=== PATIENT | male | born 1950 | race Caucasian/White ===

== ENCOUNTER 2017-06-24 06:17 | Day surgery (SDC) | payer OTHER ==
[2017-06-24 07:15] LABS: HEMATOCRIT 33.8 % (39.0-51.0); MEAN CELL VOLUME 93.5 FL (80.0-100.0); MEAN CORPUSCULAR HEMOGLOBIN 31.6 PG (27.0-34.0); MEAN CORPUSCULAR HGB CONC 33.8 % (32.0-36.0); PLATELET COUNT 147 TH/MM3 (150-450); RED BLOOD COUNT 3.61 MIL/MM3 (4.50-5.90); RED CELL DISTRIBUTION WIDTH 17.1 % (11.6-17.2); REVIEW FLAG FINAL; WHITE BLOOD COUNT 15.4 TH/MM3 (4.0-11.0)
[2017-06-24 08:08] LABS: APTT (PATIENT) 30.8 SEC (24.3-30.1); INTERNATIONAL NORMALIZED RATIO 1.1 RATIO
[2017-06-24 08:56] VITALS: BP 84/63; PULSE 68; RESP 16; TEMP 96.9; O2SAT 99
[2017-06-24] MEDS ORDERED: LIDOCAINE HCL 1% 20 ML VIAL ONE (09:50)
[2017-06-24 10:10] VITALS: BP 77/60; PULSE 72; RESP 16; TEMP 97.3; O2SAT 94
--- NOTE | 2017-06-24 10:13 | RADRPT ---
EXAM DATE/TIME: 06/24/2017 08:25 [place] COMPARISON: No previous studies available for comparison. INDICATIONS : Ascites. MEDICAL HISTORY : Colon cancer. Liver cancer. Lung cancer. SURGICAL HISTORY : Hemicolectomy. ENCOUNTER: Initial ACUITY: 1 day PAIN SCORE: Non-responsive LOCATION: Left lower quadrant FLUID: Total volume of 6600 cc of clear, yellow fluid was removed. Fluid was discarded. Paracentesis was therapeutic only. Post procedure scanning reveals no hematoma or other complication. TECHNIQUE: 1. Ultrasound guidance for abdominal paracentesis. 2. Paracentesis. The risks, benefits, and alternatives to ultrasound guided paracentesis were explained to the patient in detail including the risk of bleeding and infection. Written and verbal informed consent was obt ained. With the patient on the ultrasound table, ultrasound imaging was used to select the most appropriate approach for paracentesis. Overlying skin was prepped and draped in the usual sterile fashion and wi th a local anesthetic, a dermatotomy was made with an 11 blade scalpel. A 6 Pas[employer] [id number]-fafdvumn ca theter was introduced into the peritoneal cavity and fluid was collected. The patient tolerated the procedure well and left the ultrasound suite in stable condition. CONCLUSION: Uncomplicated ultrasound guided paracentesis. Leo Liz Jr., MD on June 24, 2017 at 10:11 Board Certified Radiologist. This report was verified electronically.
[2017-06-24 10:15] VITALS: BP 82/62; PULSE 74; RESP 18; O2SAT 100
[2017-06-24 10:25] VITALS: BP 80/58; PULSE 75; RESP 20; O2SAT 100
[2017-06-24] MEDS ORDERED: ALBUMIN 25% INJ 100 ML IV ONE ×2 (10:26→10:27)
[2017-06-24 10:40] VITALS: BP 85/63; PULSE 72; RESP 20; O2SAT 100
[2017-06-24] MEDS ORDERED: ALBUMIN HUMAN 25% 12.5GM-W/25GM FOR 37.5GM IV ONE (10:45)
[2017-06-24] MEDS ORDERED: ALBUMIN HUMAN 25% 25GM-W/12.5GM FOR 37.5GM IV ONE (10:45)
== END 2017-06-24 11:00 | disposition home or self-care (01) ==
LOC: HRAD 06:17 → HRIP 07:08 → HRAD 11:00
PROVIDERS: ATTEND Family Medicine Hospice and Palliative Medicine
DX: R18.8 Other ascites (principal); C18.9 Malignant neoplasm of colon, unspecified; C78.7 Secondary malignant neoplasm of liver and intrahepatic bile duct
CPT/HCPCS: 36415; 49083; 85027; 85610; 85730; C1729; P9047